=== PATIENT | female | born 1975 | race Hispanic/Latino ===

== ENCOUNTER 2021-06-06 21:42 | Observation (INO) | payer OTHER ==
[2021-06-06] MEDS ORDERED: Ventolin HFA Inhaler 60 PUFF INHALER ONE (22:41)
[2021-06-07 00:17] LABS: SARS-CoV-2 NAA Rapid Test Not Detected (NotDetected)
[2021-06-07 00:44] LABS: ALT (SGPT) 18 U/L (8-55); AST (SGOT) 15 U/L (5-34); Albumin 3.8 g/dL (3.5-5.0); Alkaline Phosphatase 96 U/L (40-110); Anion Gap 19 mmol/L (10-20); BUN (Urea Nitrogen) 9 mg/dL (7.0-18.7); Calc. Creatinine Clearance 0 mL/min (70-130); Carbon Dioxide 21 mmol/L (22-29); Chloride 104 mmol/L (98-107); Globulin 4.3 g/dL (2.4-3.5); Potassium 4.1 mmol/L (3.5-5.1); Protein, Total 8.1 g/dL (6.0-8.3); Sodium 140 mmol/L (136-145)
[2021-06-07 00:45] LABS: #Eosinphils 0.3 10x3/uL (0.0-0.5); #Monocytes 0.8 10x3/uL (0.0-1.1); #Neutrophils 7.6 10x3/uL (1.5-8.4); %Basophils 0.4 % (0.0-2.0); %Lymphocytes 21.2 % (18.0-47.0); %Neutrophils 67.9 % (40.0-75.0); Mean Corpuscular HGB CONC 31.6 g/dL (32.0-36.0); Mean Corpuscular Hemoglobin 26.4 pg (27.0-33.0); Mean Corpuscular Volume 83.7 fl (81.6-98.3); Mean Platelet Volume 12.7 fl (7.4-10.4); Platelet Count 228 10x3/uL (150-450); RBC Distribution Width 15.8 % (11.5-14.5); Red Blood Cell (RBC) Count 4.92 10x6/uL (3.90-5.03); White Blood Cell (WBC) Count 11.2 10x3/uL (3.5-10.5)
[2021-06-07 01:44] LABS: Bilirubin, Total 0.6 mg/dL (0.2-1.2); Calcium 9.3 mg/dL (7.8-10.44); Glucose 132 mg/dL (70-105)
[2021-06-07] MEDS ORDERED: Acetaminophen 500 MG TAB ONE (02:45)
[2021-06-07] MEDS ORDERED: Aspirin Chewable 81 MG TAB ONE (02:47)
[2021-06-07] MEDS ORDERED: Nitroglycerin 0.4 MG TAB (25 Tab Bottle) SL PRN (04:49)
[2021-06-07] MEDS ORDERED: Prevnar 13-Val Conj/PF 0.5 ML SYRINGE IM ONE (05:23)
[2021-06-07] MEDS ORDERED: Ketorolac Tromethamine 30 MG/ML VIAL IVP SCH (06:00)
[2021-06-07] MEDS ORDERED: Ketorolac Tromethamine 30 MG/ML VIAL ONE (06:29)
[2021-06-07] MEDS ORDERED: Acetaminophen 325 MG TAB ONE (06:35)
[2021-06-07 07:10] LABS: #Eosinphils 0.2 10x3/uL (0.0-0.5); #Monocytes 0.7 10x3/uL (0.0-1.1); %Basophils 0.2 % (0.0-2.0); %Eosinophils 2.4 % (0.0-6.0); %Lymphocytes 22.5 % (18.0-47.0); %Monocytes 6.6 % (0.0-10.0); Hemoglobin 12.7 g/dL (12.0-15.5); Mean Corpuscular HGB CONC 30.7 g/dL (32.0-36.0); Mean Corpuscular Volume 84.8 fl (81.6-98.3); Mean Platelet Volume 12.1 fl (7.4-10.4); Platelet Count 225 10x3/uL (150-450); RBC Distribution Width 15.9 % (11.5-14.5); Red Blood Cell (RBC) Count 4.88 10x6/uL (3.90-5.03); White Blood Cell (WBC) Count 10.2 10x3/uL (3.5-10.5)
[2021-06-07 07:35] LABS: Anion Gap 15 mmol/L (10-20); BUN (Urea Nitrogen) 11 mg/dL (7.0-18.7); Calc. Creatinine Clearance 0 mL/min (70-130); Carbon Dioxide 23 mmol/L (22-29); Chloride 105 mmol/L (98-107); Cholesterol 131 mg/dl (< 200 Desired); HDL Cholesterol 44 mg/dL (>60 Neg Risk); LDL Cholesterol, Calculated 69 mg/dL; Magnesium 1.9 mg/dL (1.6-2.6); Potassium 3.7 mmol/L (3.5-5.1); Sodium 139 mmol/L (136-145); Triglycerides 90 mg/dL (Less than 150)
[2021-06-07 07:41] LABS: Troponin I Less than 0.010 ng/mL (< 0.028)
[2021-06-07 07:43] LABS: BHCG - Serum Negative (NEGATIVE); Pregs Control Background? CLEAR/WHITE (CLR/WHITE); Pregs Control Bar Appear? YES (CONTROL BAR)
[2021-06-07] MEDS ORDERED: metFORMIN 500 MG TAB PO SCH (09:00)
[2021-06-07 09:22] LABS: Calcium 9.4 mg/dL (7.8-10.44); Glucose 127 mg/dL (70-105)
[2021-06-07 09:49] LABS: Troponin I Less than 0.010 ng/mL (< 0.028)
[2021-06-07] MEDS: Aspirin Chewable 81 MG TAB PO SCH (10:08)
[2021-06-07] MEDS: Losartan Potassium 50 MG TAB PO SCH (10:10)
[2021-06-07] MEDS: Furosemide 20 MG TAB PO SCH (10:10)
[2021-06-07] MEDS: FLUoxetine HCl 20 MG CAP PO SCH (10:10)
[2021-06-07] MEDS: Apixaban 5 MG TAB PO SCH ×2 (10:11→20:56)
[2021-06-07] MEDS: GUAIFENESIN SF SOLN 200 MG/10 ML UDCUP PO SCH ×3 (10:16→20:56)
[2021-06-07] MEDS ORDERED: HYDROcodone/Acetaminophen 5/325 mg Tablet PO PRN ×2 (12:37)
[2021-06-07 15:47] VITALS: BMI 74.9
[2021-06-07] MEDS: Albuterol Sulfate 2.5 mg/3 ml Neb NEB SCH ×3 (17:01→19:00)
[2021-06-07] MEDS: metFORMIN 500 MG TAB PO SCH (17:33)
[2021-06-07] MEDS ORDERED: Rosuvastatin 10 MG TAB PO SCH (21:00)
[2021-06-08] MEDS: Albuterol Sulfate 2.5 mg/3 ml Neb NEB SCH ×2 (01:25→07:35)
[2021-06-08] MEDS: GUAIFENESIN SF SOLN 200 MG/10 ML UDCUP PO SCH ×2 (04:34→08:12)
[2021-06-08] MEDS: metFORMIN 500 MG TAB PO SCH (08:11)
[2021-06-08] MEDS: Losartan Potassium 50 MG TAB PO SCH (08:11)
[2021-06-08] MEDS: Aspirin Chewable 81 MG TAB PO SCH (08:11)
[2021-06-08] MEDS: Apixaban 5 MG TAB PO SCH (08:11)
[2021-06-08] MEDS: Furosemide 20 MG TAB PO SCH (08:11)
[2021-06-08] MEDS: FLUoxetine HCl 20 MG CAP PO SCH (08:11)
[2021-06-08 12:14] VITALS: BP 131/79; TEMP 97.9
== END 2021-06-08 14:24 | disposition home or self-care (01) ==
LOC: CSHERS 21:42 → CSHTELE 06-07 08:27
PROVIDERS: ADMIT Family Medicine; ATTEND Hospitalist
DX: J20.9 Acute bronchitis, unspecified (principal); R07.89 Other chest pain; Z86.711 Personal history of pulmonary embolism; E11.9 Type 2 diabetes mellitus without complications; I10 Essential (primary) hypertension; E78.5 Hyperlipidemia, unspecified; Z79.899 Other long term (current) drug therapy; Z79.84 Long term (current) use of oral hypoglycemic drugs; E66.01 Morbid (severe) obesity due to excess calories; M79.7 Fibromyalgia; Z20.822 Contact with and (suspected) exposure to COVID-19
CPT/HCPCS: 36416; 71045; 78451; 80053; 80061; 83605; 83735; 83880; 84484; 84703; 85025; 87040; 87804; 87807; 93005; 93010; 93306; 94640; A9540; G0378; J1885; J7611; U0002

== ENCOUNTER 2022-06-28 09:03 | Emergency (ER) | payer OTHER ==
[2022-06-28] MEDS ORDERED: Acetaminophen 500 MG TAB ONE (09:17)
== END 2022-06-28 11:11 | disposition home or self-care (01) ==
LOC: CSHERS 09:03
DX: M25.552 Pain in left hip (principal); M25.561 Pain in right knee; I11.0 Hypertensive heart disease with heart failure; I50.9 Heart failure, unspecified; E11.9 Type 2 diabetes mellitus without complications; M10.9 Gout, unspecified; F17.210 Nicotine dependence, cigarettes, uncomplicated
CPT/HCPCS: 70450

== ENCOUNTER 2022-07-04 16:09 | Emergency (ER) | payer OTHER ==
[~2022-07-04 16:09] MED LIST: Iopamidol 300 61% 100 ML VIAL FS ONE
[2022-07-04 16:51] LABS: #Monocytes 0.8 10x3/uL (0.0-1.1); #Neutrophils 12.9 10x3/uL (1.5-8.4); %Basophils 0.3 % (0.0-2.0); %Eosinophils 0.2 % (0.0-6.0); %Lymphocytes 7.2 % (18.0-47.0); %Neutrophils 86.7 % (40.0-75.0); Hemoglobin 12.6 g/dL (12.0-15.5); Mean Corpuscular HGB CONC 32.2 g/dL (32.0-36.0); Mean Corpuscular Hemoglobin 26.8 pg (27.0-33.0); Mean Corpuscular Volume 83.2 fl (81.6-98.3); Mean Platelet Volume 12.3 fl (7.4-10.4); Platelet Count 215 10x3/uL (150-450); RBC Distribution Width 15.9 % (11.5-14.5); White Blood Cell (WBC) Count 14.9 10x3/uL (3.5-10.5)
[2022-07-04 16:58] LABS: ALT (SGPT) 17 U/L (8-55); AST (SGOT) 13 U/L (5-34); Albumin 4.1 g/dL (3.5-5.0); Alkaline Phosphatase 103 U/L (40-110); Anion Gap 15 mmol/L (10-20); BUN (Urea Nitrogen) 6 mg/dL (7.0-18.7); Bilirubin, Total 0.7 mg/dL (0.2-1.2); Calc. Creatinine Clearance 0 mL/min (70-130); Carbon Dioxide 20 mmol/L (22-29); Chloride 105 mmol/L (98-107); Estimated GFR 109; Globulin 3.9 g/dL (2.4-3.5); Glucose 136 mg/dL (70-105); Lipase 25 U/L (8-78); Potassium 3.7 mmol/L (3.5-5.1); Sodium 136 mmol/L (136-145)
[2022-07-04] MEDS ORDERED: Ketorolac Tromethamine 30 MG/ML VIAL ONE ×2 (17:43→20:37)
[2022-07-04] MEDS ORDERED: Ondansetron PF 4 MG/2 ML Vial ONE (17:43)
[2022-07-04 17:47] LABS: Bilirubin Neg (Negative); Blood, Urine Negative (Negative); Clarity Clear (Clear); Glucose, Urine (Dipstick) Normal (Negative); Ketone, Urine Negative (Negative); Leukocyte Negative (Negative); Nitrite Negative (Negative); Protein, Urine (Dipstick) 15 mg/dl (Neg-Trace); Specific Gravity, Urine 1.015 (1.005-1.030); Urobilinogen Normal mg/dL (Less than 2)
[2022-07-04 17:54] LABS: SARS-CoV-2 NAA Rapid Test Not Detected (NotDetected)
[2022-07-04] MEDS ORDERED: Mag-Al Plus 1200 MG/1200 MG/120 MG/30 ML UDCUP ONE (20:37)
[2022-07-04] MEDS ORDERED: Lidocaine Viscous Sol 2% 15 ml UD Cup ONE (20:37)
[2022-07-04] MEDS ORDERED: Dicyclomine 20 MG TAB ONE (20:39)
== END 2022-07-04 21:20 | disposition home or self-care (01) ==
LOC: CSHERS 16:09
DX: R10.10 Upper abdominal pain, unspecified (principal); R11.2 Nausea with vomiting, unspecified; E11.9 Type 2 diabetes mellitus without complications; I11.0 Hypertensive heart disease with heart failure; I50.9 Heart failure, unspecified; F17.210 Nicotine dependence, cigarettes, uncomplicated; Z20.822 Contact with and (suspected) exposure to COVID-19
CPT/HCPCS: 36415; 71045; 74177; 80053; 81003; 83605; 83690; 84484; 85025; 87040; 93005; 96361; 96374; 96375; 96376; J1885; J2405; Q9967

== ENCOUNTER 2022-07-06 15:40 | Emergency (ER) | payer OTHER ==
[2022-07-06 16:16] LABS: #Eosinphils 0.1 10x3/uL (0.0-0.5); #Monocytes 1.7 10x3/uL (0.0-1.1); #Neutrophils 15.4 10x3/uL (1.5-8.4); %Basophils 0.2 % (0.0-2.0); %Eosinophils 0.3 % (0.0-6.0); %Lymphocytes 7.8 % (18.0-47.0); %Monocytes 8.9 % (0.0-10.0); %Neutrophils 82.3 % (40.0-75.0); Hemoglobin 11.3 g/dL (12.0-15.5); Mean Corpuscular HGB CONC 33.1 g/dL (32.0-36.0); Mean Corpuscular Hemoglobin 26.8 pg (27.0-33.0); Platelet Count 176 10x3/uL (150-450); RBC Distribution Width 15.9 % (11.5-14.5); Red Blood Cell (RBC) Count 4.21 10x6/uL (3.90-5.03); White Blood Cell (WBC) Count 18.8 10x3/uL (3.5-10.5)
[2022-07-06 16:31] LABS: ALT (SGPT) 17 U/L (8-55); AST (SGOT) 17 U/L (5-34); Albumin 3.8 g/dL (3.5-5.0); Alkaline Phosphatase 92 U/L (40-110); Anion Gap 13 mmol/L (10-20); BUN (Urea Nitrogen) 7 mg/dL (7.0-18.7); Bilirubin, Total 0.6 mg/dL (0.2-1.2); Calc. Creatinine Clearance 0 mL/min (70-130); Calcium 8.4 mg/dL (7.8-10.44); Carbon Dioxide 21 mmol/L (22-29); Chloride 104 mmol/L (98-107); Estimated GFR 108; Globulin 3.6 g/dL (2.4-3.5); Glucose 149 mg/dL (70-105); Potassium 3.4 mmol/L (3.5-5.1); Protein, Total 7.4 g/dL (6.0-8.3); Sodium 135 mmol/L (136-145)
[2022-07-06] MEDS ORDERED: Ondansetron PF 4 MG/2 ML Vial ONE (19:12)
[2022-07-06] MEDS ORDERED: Ketorolac Tromethamine 30 MG/ML VIAL ONE (19:12)
== END 2022-07-06 19:19 | disposition home or self-care (01) ==
LOC: CSHERS 15:40
DX: R07.9 Chest pain, unspecified (principal); R05.9 Cough, unspecified; D72.829 Elevated white blood cell count, unspecified
CPT/HCPCS: 36415; 71045; 80053; 84484; 85025; 93005; 96374; 96375; J1885; J2405